=== PATIENT | female | born 1965 | race Hispanic/Latino ===

== ENCOUNTER 2017-08-22 17:53 | Emergency (ER) | payer MEDICAID ==
[2017-08-22] MEDS ORDERED: ACETAMINOPHEN EXTRA STRENGTH 500 MG TABLET ONE (18:19)
[2017-08-22] MEDS ORDERED: IBUPROFEN 600 MG TABLET ONE (18:19)
[2017-08-22] MEDS ORDERED: IPRATROPIUM/ALBUTEROL SULFATE 3 ML SOLUTION IH ONE (18:24)
== END 2017-08-22 19:13 | disposition home or self-care (01) ==
LOC: EDH 17:53
DX: J10.1 Influenza due to other identified influenza virus with other respiratory manifestations (principal); Z90.49 Acquired absence of other specified parts of digestive tract; Z72.0 Tobacco use
CPT/HCPCS: 71046; 87804; 94640

== ENCOUNTER 2017-09-24 17:43 | Emergency (ER) | payer MEDICAID ==
[2017-09-24 18:38] LABS: BASOPHILS % (AUTO) 0.7 % (0.0-5.0); EOSINOPHILS % (AUTO) 1.4 % (0.0-8.0); HEMATOCRIT 39.1 % (36-48); LYMPHOCYTES % (AUTO) 22.4 % (21.0-51.0); MEAN CORPUSCULAR HEMOGLOBIN 31.7 pg (27.0-33.0); MEAN CORPUSCULAR HGB CONC 34.4 g/dL (32.0-36.0); MEAN CORPUSCULAR VOLUME 92.1 fL (79-99); NEUTROPHILS % (AUTO) 69.5 % (40.0-77.0); PLATELET COUNT (AUTO) 301 K/uL (130-400); RED BLOOD CELL COUNT(AUTO) 4.24 MIL/uL (4.00-5.50); RED CELL DISTRIBUTION WIDTH 14.3 % (11.0-15.5); WHITE BLOOD COUNT (AUTO) 11.5 K/uL (4.8-10.8)
[2017-09-24 18:49] LABS: CREATININE 0.7 mg/dL (0.5-1.5); POTASSIUM 3.3 mmol/L (3.5-5.1)
[2017-09-24 18:54] LABS: BILIRUBIN,TOTAL 0.2 mg/dL (0.2-1.0); TOTAL PROTEIN, SERUM 7.2 g/dL (6.0-8.3)
[2017-09-24 18:57] LABS: RAPID GROUP A STREP POSITIVE (NEGATIVE)
== END 2017-09-24 19:12 | disposition home or self-care (01) ==
LOC: EDH 17:43
DX: J02.0 Streptococcal pharyngitis (principal); Z72.0 Tobacco use
CPT/HCPCS: 36415; 71045; 80053; 85025; 87804; 87880

== ENCOUNTER 2017-10-18 13:23 | Emergency (ER) | payer MEDICAID ==
[2017-10-18] MEDS ORDERED: KETOROLAC TROMETHAMINE 30MG/ML ONE (13:43)
[2017-10-18 14:02] LABS: APPEARANCE,URINE Clear (CLEAR); BILIRUBIN,URINE Negative (NEGATIVE); COLOR,URINE Yellow (YELLOW); GLUCOSE, URINE (UA) Negative (NEGATIVE); KETONES,URINE Negative (NEGATIVE); LEUKOCYTE ESTERASE ,URINE Trace (NEGATIVE); NITRATE,URINE Negative (NEGATIVE); OCCULT BLOOD,URINE Negative (NEGATIVE); PH,URINE 5.5 (5.0-8.0); PROTEIN,URINE Negative (NEGATIVE); UROBILINOGEN,URINE 0.2 mg/dL (0.2-1.0)
[2017-10-18 14:17] LABS: BACTERIA,URINE Rare /HPF (None Seen); RBC,URINE None Seen /HPF (0-1); SQUAMOUS EPITHELIAL CELL,UR 0-2 /HPF (0-2); WBC,URINE 0-1 /HPF (0-1)
== END 2017-10-18 17:15 | disposition home or self-care (01) ==
LOC: EDH 13:23
DX: M54.5 Low back pain (principal); R06.02 Shortness of breath; R10.9 Unspecified abdominal pain; I10 Essential (primary) hypertension; E11.9 Type 2 diabetes mellitus without complications; E78.5 Hyperlipidemia, unspecified; Z72.0 Tobacco use
CPT/HCPCS: 71045; 74176; 81001; 96372; 99285; J1885

== ENCOUNTER 2018-03-21 08:20 | Emergency (ER) | payer MEDICAID ==
[2018-03-21] MEDS ORDERED: KETOROLAC TROMETHAMINE 30MG/ML ONE (09:12)
[2018-03-21] MEDS ORDERED: LIDOCAINE HCL MPF 1% 5ML VIAL ONE (09:12)
[2018-03-21] MEDS ORDERED: CEFTRIAXONE SODIUM 1 GM ONE (09:12)
== END 2018-03-21 10:10 | disposition home or self-care (01) ==
LOC: EDH 08:20
DX: K02.9 Dental caries, unspecified (principal); K04.7 Periapical abscess without sinus; E11.9 Type 2 diabetes mellitus without complications; E78.5 Hyperlipidemia, unspecified; I10 Essential (primary) hypertension; Z72.0 Tobacco use
CPT/HCPCS: 96372 ×2; 99284; J0696; J1885; J3490

== ENCOUNTER 2024-06-10 19:44 | Emergency (ER) | payer MEDICAID ==
[~2024-06-10] VITALS: Ht 157.5 cm; Wt 114.9 kg
--- NOTE | 2024-06-10 20:06 | ERN ---
General Chief Complaint: Face Pain/Problem Stated Complaint: RT FACIAL SWELLING Time Seen by MD: 19:52 History of Present Illness Initial Comments Mrs Thibodeaux is a 59-year-old female significant past medical history of morbid obesity and poor dentition who comes in with a chief complaint of right facial pain. Patient reports that she has been having increased pain and swelling. Patient states that she has not have enough money to see a dentist. Allergies: Coded Allergies: No Known Allergies (Unverified Allergy, Unknown, 06/10/24) Past Medical History Past Medical History: Diabetes-Type II, Hypertension, Kidney Stone, Other Medical History Other: NON COMPLIANT WITH MEDICATIONS Past Surgical History: Cholecystectomy, BTL ROS Dictation Constitutional: Negative for fever,chills, and weight loss Eyes: Negative for injury, pain,redness, and discharge ENT: Painful swelling around jaw Cardiovascular: Negative for chest pain, palpitations, and edema Respiratory: Negative for shortness of breath, cough, and wheezing, Abdomen/GI: Negative for abdominal pain, nausea, vomiting, diarrhea, and constipation Back: Negative for injury and pain : Negative for injury, bleeding and discharge MS/Extremity: Negative for injury and deformity Skin: Negative for rash, and discoloration Neuro: Negative for headache, weakness, numbness, tingling, and seizure Psych: Negative for suicide ideation, homicidal ideation, and hallucinations Physical Exam Physical Exam Dictation General: Appears to be in pain Head/Face: Normocephalic, atraumatic Eyes: PERRL, EOMI, vision at baseline ENT: Right jawline swelling. Evaluation of teeth show poor dentition with several cracked teeth Neck: Trachea midline, supple Cardiovascular: RRR, normal S1/S2 Respiratory: CTAB, no respiratory distress, No rales or wheezes Abdomen: Soft, non-tender, non-distended, normal bowel sounds, no guarding or rebound. Skin: Warm, dry, normal turgor, no rash MS/Extremity: Pulses equal, no cyanosis, neurovascular intact, FROM Neuro: COAx4, GCS 15, strength 5/5, Psych: Normal behavior, mood, and affect normal Results Laboratory and Microbiology Lab and Micro Result Laboratory Tests Test 06/10/24 20:06 White Blood Count 10.8 K/uL (4.8-10.8) Red Blood Count 4.01 MIL/uL (4.00-5.50) Hemoglobin 12.8 g/dL (12.0-16.0) Hematocrit 39.0 % (36-48) Mean Corpuscular Volume 97.3 fL (79-99) Mean Corpuscular Hemoglobin 31.9 pg (27.0-33.0) Mean Corpuscular Hemoglobin Concent 32.8 g/dL (32.0-36.0) Red Cell Distribution Width 14.0 % (11.0-15.5) Platelet Count 287 K/uL (130-400) Mean Platelet Volume 10.0 fL (7.5-10.5) Immature Granulocyte % (Auto) 0.4 % (0-1) Neutrophils (%) (Auto) 67.3 % (40.0-77.0) Lymphocytes (%) (Auto) 24.8 % (21.0-51.0) Monocytes (%) (Auto) 5.1 % (3.0-13.0) Eosinophils (%) (Auto) 1.8 % (0.0-8.0) Basophils (%) (Auto) 0.6 % (0.0-5.0) Neutrophils # (Auto) 7.3 K/uL (1.8-7.7) Lymphocytes # (Auto) 2.7 K/uL (1.0-4.8) Monocytes # (Auto) 0.6 K/uL (0.1-1.0) Eosinophils # (Auto) 0.19 K/uL (0.00-0.70) Basophils # (Auto) 0.06 K/uL (0.00-0.20) Absolute Immature Granulocyte (auto 0.04 K/uL (0-1) Nucleated Red Blood Cells 0.0 % (0.0-0.19) Sodium Level 142 mmol/L (136-145) Potassium Level 4.3 mmol/L (3.5-5.1) Chloride Level 108 mmol/L (101-111) Carbon Dioxide Level 30 mmol/L (21-32) Blood Urea Nitrogen 14 mg/dL (7-18) Creatinine 0.9 mg/dL (0.5-1.0) Glomerular Filtration Rate Calc 74 mL/min (>90) Random Glucose 97 mg/dL (70-105) Total Calcium 8.9 mg/dL (8.5-10.1) MDM Patient will be transferred to [facility] for ENT evaluation and patient is accepted. ED Course Orders Procedure Category Date Status Time Ct Maxillofacial CT 06/10/24 Resulted W/Contrast 19:59 Basic Metabolic Panel LAB 06/10/24 Complete 19:59 Ketorolac PHA 06/10/24 Complete Tromethamine 30mg/Ml 20:00 Clindamycin 150mg Cap PHA 06/10/24 Complete (Cleocin 150mg Cap 20:00 Iohexol (Omnipaque) PHA 06/10/24 Complete 20:24 Morphine 4mg Syg PHA 06/10/24 Complete (Morphine 4mg Syg) 22:00 Cbc With Differential LAB 06/10/24 Complete 22:00 Hydromorphone 1 Mg PHA 06/11/24 Complete Inj (Dilaudid 1mg Inj 01:00 Methylprednisolone PHA 06/11/24 Complete Succ 40mg (Solu-Medro 03:00 Zosyn 3.375gm+Ns 50ml PHA 06/11/24 Complete (Zosyn 3.375gm+Ns 03:30 Zosyn 3.375gm+Ns 50ml PHA 06/11/24 Complete (Zosyn 3.375gm+Ns 03:06 Hydromorphone 1 Mg PHA 06/11/24 Complete Inj (Dilaudid 1mg Inj 05:00 Ketorolac PHA 06/11/24 Complete Tromethamine 30mg/Ml 08:30 Current Medications Medications (Trade) Dose Ordered Sig/Enedina Route PRN Reason Start Time Stop Time Status Last Admin Dose Admin Clindamycin HCl (Cleocin 150mg Cap) 300 mg ONCE ONCE PO 06/10/24 20:00 06/10/24 20:01 DC 06/10/24 20:21 Hydromorphone HCl (DiLAUDid 1MG INJ) 1 mg ONCE ONCE IVP 06/11/24 01:00 06/11/24 01:01 DC 06/11/24 00:45 Hydromorphone HCl (DiLAUDid 1MG INJ) 1 mg ONCE ONCE IVP 06/11/24 05:00 06/11/24 05:01 DC 06/11/24 05:02 Iohexol (Omnipaque) 50 ml STK-MED ONCE IV 06/10/24 20:24 06/10/24 20:24 DC Ketorolac Tromethamine (toRADol) 30 mg ONCE ONCE IM 06/10/24 20:00 06/10/24 20:01 DC 06/10/24 20:22 Ketorolac Tromethamine (toRADol) 30 mg ONCE ONCE IVP 06/11/24 08:30 06/11/24 08:31 DC 06/11/24 10:12 Methylprednisolone Sodium Succinate (Solu-medROL 40MG) 60 mg ONCE ONCE IVP 06/11/24 03:00 06/11/24 03:01 DC 06/11/24 02:57 Morphine Sulfate (morPHINE 4MG SYG) 4 mg ONCE ONCE IVP 06/10/24 22:00 06/10/24 22:02 DC 06/10/24 22:19 Piperacillin Sod/ Tazobactam Sod 50 ml @ As Directed STK-MED ONCE .ROUTE 06/11/24 03:06 06/11/24 03:11 DC Piperacillin Sod/ Tazobactam Sod (Zosyn 3.375gm+NS 50ml) 3.375 gm ONCE ONCE IV 06/11/24 03:30 06/11/24 03:31 DC 06/11/24 03:08 Vital Signs Date Time Temp Pulse Resp B/P (MAP) Pulse Ox O2 Delivery O2 Flow Rate FiO2 06/11/24 10:18 75 16 136/77 96 Room Air* 0 06/11/24 07:45 98.1 72 18 129/70 98 Room Air* 0 06/11/24 05:19 98.2 80 14 145/76 75 Room Air* 0 06/11/24 03:15 95 20 149/75 98 Room Air* 0 06/11/24 01:46 77 14 141/60 94 Room Air* 0 06/11/24 00:13 97.9 68 18 146/67 97 Room Air* 0 06/10/24 20:26 97.2 65 20 151/73 96 Room Air* 0 06/10/24 19:46 96.6 70 16 184/91 99 Room Air DX & DISP Disposition: Inpatient Decision to Admit Date: Jun 11, 2024 Decision to Admit Time: 11:45 Departure Impression: Primary Impression: Abscess of face Condition: Stable Referrals: TETO GRIFFIN DO (PCP) GOPAL HIDALGO MD Jun 10, 2024 20:06 VANI LONG MD Jun 11, 2024 11:45
[2024-06-10 20:20] LABS: CREATININE 0.9 mg/dL (0.5-1.0); POTASSIUM 4.3 mmol/L (3.5-5.1)
[2024-06-10] MEDS: CLINDAMYCIN 150 MG CAP PO ONE (20:21)
--- NOTE | 2024-06-10 20:21 | NUR ---
PENDING GFR RESULTS FOR CT EXAM.
[2024-06-10] MEDS: ketOROlac 30MG VIAL (30MG/ML) IM ONE (20:22)
[2024-06-10] MEDS ORDERED: IOHEXOL-350 50ML VIAL IV ONE (20:24)
--- NOTE | 2024-06-10 20:56 | HMCIMG ---
CT MAXILLOFACIAL W/CONTRAST REASON: dental pain COMPARISON: None TECHNIQUE: Axial images are obtained through the facial bones following IV contrast, 50 cc Omnipaque 350. FINDINGS: There is diffuse soft tissue swelling along the external side of the right hemimandible. There is no discrete focal fluid collection to suggest abscess. There are multiple dental caries. There is apical lucency surrounding one of the right mandibular incisors consistent with periapical abscess. There is no gas forming infection. There are are normal soft tissue tissues left hemimandible. Paranasal sinuses are normally aerated. Globes and retrobulbar soft tissues appear normal. Tongue, tonsillar fossa and parapharyngeal soft tissues appear unremarkable as do salivary glands. IMPRESSION: 1. Extensive swelling along the right side of the mandible, there is evidence of a periapical abscess around one of the right-sided mandibular incisors. The 2. No evidence of abscess or gas forming infection.
[2024-06-10] MEDS: morPHINE 4 MG SYG IVP ONE (22:19)
--- NOTE | 2024-06-10 22:27 | NUR ---
TRANSFER CALL PLACED TO [facility] TO INITIATE TRANSFER FOR MAXILLOFACIAL SERVICES
[2024-06-10 22:56] LABS: BASOPHILS # (AUTO) 0.06 K/uL (0.00-0.20); BASOPHILS % (AUTO) 0.6 % (0.0-5.0); EOSINOPHILS # (AUTO) 0.19 K/uL (0.00-0.70); EOSINOPHILS % (AUTO) 1.8 % (0.0-8.0); IMMATURE GRANULOCYTE ABSOLUTE 0.04 K/uL (0-1); LYMPHOCYTES # (AUTO) 2.7 K/uL (1.0-4.8); LYMPHOCYTES % (AUTO) 24.8 % (21.0-51.0); MEAN CORPUSCULAR HEMOGLOBIN 31.9 pg (27.0-33.0); MEAN CORPUSCULAR HGB CONC 32.8 g/dL (32.0-36.0); MEAN CORPUSCULAR VOLUME 97.3 fL (79-99); MONOCYTES # (AUTO) 0.6 K/uL (0.1-1.0); MONOCYTES % (AUTO) 5.1 % (3.0-13.0); NEUTROPHILS # (AUTO) 7.3 K/uL (1.8-7.7); NEUTROPHILS % (AUTO) 67.3 % (40.0-77.0); PLATELET COUNT (AUTO) 287 K/uL (130-400); RED BLOOD CELL COUNT(AUTO) 4.01 MIL/uL (4.00-5.50); WHITE BLOOD COUNT (AUTO) 10.8 K/uL (4.8-10.8)
--- NOTE | 2024-06-10 23:02 | NUR ---
TRANSFER [employer] AD[employer]ISTRATOR HAS CALLED BACK. THEIR OMF IS ONLY AVAILABLE FOR TRAUMA. TRANSFER DENIED
--- NOTE | 2024-06-10 23:22 | NUR ---
TRANSFER CALL PLACED TO [facility] [employer] [facility] TO INITIATE TRANSFER FOR MAXILLOFACIAL SERVICES. STATES THERE IS NO MAXILLOSURGEON AVAILABLE. TRANSFER DENIED.
--- NOTE | 2024-06-10 23:26 | NUR ---
TRANSFER CALL PLACED TO [facility] TO INITIATE TRANSFER FOR MAXILLOFACIAL SERVICES
--- NOTE | 2024-06-10 23:39 | NUR ---
TRANSFER DEMOGRAPHIC SHIEET, PHYSICIAN'S NOTE AND CT REPORT FAXED REQUESTED TO [phone]
--- NOTE | 2024-06-11 00:30 | NUR ---
INCREASE IN SWELLING NOTED TO BOTTOM LIP, ED MD MADE AWARE, PATIENT DENIES ANY SOB AT THIS TIME
[2024-06-11] MEDS: hydroMORPHone 1 MG INJ IVP ONE ×2 (00:45→05:02)
[2024-06-11] MEDS: Solu-medROL 40MG VIAL IVP ONE (02:57)
[2024-06-11] MEDS: ZOSYN 3.375GM +NS 50ML IV ONE (03:08)
[2024-06-11] MEDS: ZOSYN 3.375GM+NS 50ML 50 ML ONE (03:48)
--- NOTE | 2024-06-11 04:08 | NUR ---
TRANSFER CALL PLACED TO [facility] FOR UPDATE ON TRANSFER REQUEST. STATES THEY SPOKE TO THE ER PHYSICIAN AND EXPLAINED TO HIM THAT THIS PATIENT WAS DENIED FOR OMF SERVICES @ [phone].
--- NOTE | 2024-06-11 04:21 | NUR ---
TRANSFER CALL PLACED TO [facility] TO INITIATE TRANSFER FOR OMF SERVICES--NO OMF AT [facility]ITHER [facility] OR [facility]. TRANSFER DENIED.
--- NOTE | 2024-06-11 04:36 | NUR ---
TRANSER CALL PLACED TO LEEANNA SHARRI [facility] TO INITIATE TRANSFER FOR OMF--STATES THEY ONLY HAVE THAT SERVICE AVAILABLE FOR TRAUMA. TRANSFER DENIED
--- NOTE | 2024-06-11 04:46 | NUR ---
TRANSFER CALL PLACED TO [facility] TO INITIATE TRANSFER FOR OMF SERVICES--PLACED ON HOLD FOR 18 MINUTES--STATE THEY DO NOT HAVE THAT SERVCE IN THE [facility] AREA.
--- NOTE | 2024-06-11 06:11 | NUR ---
TRANSFER--[facility] CALL PLACED TO THE [employer] ANALYST TO INITIATE TRANSFER FOR OMF SERVICES. STATES WILL CALL BACK
--- NOTE | 2024-06-11 06:25 | NUR ---
TRANSFER [facility] HAS CALLED BACK RECOMMENDING THAT WE ATTEMPT THE TRANSFER AFTER 0900 WHEN THERE MAY BE BEDS AVAILABLE (ACCORDING TO THEIR ER PHYSICIAN).
--- NOTE | 2024-06-11 06:35 | NUR ---
TRANSFER--[facility] CALL PLACED TO [employer] SAL[employer] REPRESENTATIVE WHO STATES THAT THE ONLY HOSPITAL IN THE [place] AREA WITH OMF IS [facility]. TRANSFER DENIED
--- NOTE | 2024-06-11 06:52 | NUR ---
TRANSFER--[facility] CALL PLACED TO [employer] WHO STATES THAT THE ONLY FACILITY IN THE [place] AREA WITH OMF SERVICES IS [facility]
[2024-06-11] MEDS: ketOROlac 30MG VIAL (30MG/ML) IVP ONE (10:12)
--- NOTE | 2024-06-11 10:30 | NUR ---
TRANSFER REQUEST FOR ENT MAXILLOFACIAL SERVICE PER DR LONG STATES HE SPOKE WITH DR RUDOLPH AND HE WILL SEE PT AT [facility] . CALL PLACE TO TRANSFER CENTER SPOKE WITH [facility] FAXED AND WILL CALL BACK. DEANN MCDONNELL
--- NOTE | 2024-06-11 11:52 | NUR ---
TRANSFER CALL BACK ZAHRAA FROM [place] WITH [facility] UNDER DOCTOR NILTON KOCH AT 1145 TO ROOM 328. PRIMARY NURSE TO CALL REPORT TO [phone] AND PT IS ALSO AWARE. NURSE TO CALL EMS WHEN READY. DEANN MCDONNELL
--- NOTE | 2024-06-11 12:25 | NUR ---
PATIENT REPORT ATTEMPT TO NURSE SARI WITH [facility]- NO ANSWER
--- NOTE | 2024-06-11 12:30 | NUR ---
[facility] INFORMED OF TRANSFER
--- NOTE | 2024-06-11 12:33 | NUR ---
PATIENT REPORT ATTEMPT TO NURSE SARI WITH [facility]- NURSE TO CALL BACK IS DISCHARGING PATIENT.
--- NOTE | 2024-06-11 12:46 | NUR ---
PATIENT REPORT ATTEMPT TO NURSE SARI WITH [facility]- NO ANSWER.
--- NOTE | 2024-06-11 13:03 | NUR ---
GAVE REPORT TO KECIA GUO IN REGARDS TO PT.
[2024-06-11 13:41] VITALS: BP 129/66; PULSE 68; RESP 14; TEMP 98.3; O2SAT 99
== END 2024-06-11 15:13 | disposition critical access hospital (66) ==
LOC: EDH 19:44
DX: L02.01 Cutaneous abscess of face (principal); E11.9 Type 2 diabetes mellitus without complications; E66.01 Morbid (severe) obesity due to excess calories; I10 Essential (primary) hypertension; Z87.442 Personal history of urinary calculi; Z90.49 Acquired absence of other specified parts of digestive tract; Z98.51 Tubal ligation status
CPT/HCPCS: 99285; 70487; 96375 ×2; 80048; 85025; 36415; 96372; 96365; 96376; J2270; J1885 ×2; Q9967; J1171 ×2; J2919; J2543